=== PATIENT | female | born 1940 | race Caucasian/White ===

== ENCOUNTER 2016-10-15 | Outpatient (CLI) | payer MEDICARE | END 2016-10-15 19:28 | disposition short-term general hospital (02) | DX: R40.20 Unspecified coma (principal) | CPT/HCPCS: A0170; A0425; A0433 ==

== ENCOUNTER 2017-04-10 18:09 | Outpatient (CLI) | payer MEDICARE | END 2017-04-10 18:10 | disposition critical access hospital (66) | LOC: EMS 18:09 | PROVIDERS: ATTEND Surgery | DX: M25.562 Pain in left knee (principal) | CPT/HCPCS: A0425; A0429 ==

== ENCOUNTER 2017-04-10 18:47 | Emergency (ER) | payer MEDICARE ==
[2017-04-10] MEDS ORDERED: IBUPROFEN 800 MG TABLET PO STA (19:01)
--- NOTE | 2017-04-10 19:03 | ED Physician Documentation ---
PD HPI LOWER EXT INJURY - Stated complaint Stated Complaint: KNEE SWELLING - Chief complaint Chief Complaint: Ext Problem - History obtained from History obtained from: Patient, EMS - History of Present Illness PD HPI LOW EXT INJURY LOCATION: Other (76-year-old woman with history of atrial fibrillation on Eliquis, also right total knee replacement complains of left knee pain. She presents by ambulance. History is somewhat limited because of alcohol intoxication. It is unclear what exactly she was doing but she said her knee gave out on her. Now she cannot walk. No specific fall or injury though.) Review of Systems Ten Systems: 10 systems reviewed and negative Constitutional: denies: Fever, Chills GI: denies: Abdominal Pain, Nausea : denies: Dysuria, Frequency, Hesitancy PD PAST MEDICAL HISTORY - Past Medical History Cardiovascular: Hypertension, High cholesterol Other Past Medical History: gout - Present Medications Home Medications: Ambulatory Orders Medication Instructions Recorded Confirmed Allopurinol 100 mg PO DAILY 04/10/17 04/10/17 Apixaban [Eliquis] 5 mg PO BID 04/10/17 04/10/17 Atenolol 50 mg PO DAILY 04/10/17 04/10/17 Atorvastatin [Lipitor] 40 mg PO DAILY 04/10/17 04/10/17 Digoxin 0.125 mg PO DAILY 04/10/17 04/10/17 Famotidine [Pepcid] 20 mg PO DAILY 04/10/17 04/10/17 Furosemide [Lasix] 10 mg PO DAILY 04/10/17 04/10/17 Levothyroxine [Synthroid] 100 mcg PO DAILY 04/10/17 04/10/17 Melatonin 6 mg PO BID 04/10/17 04/10/17 Potassium Chloride [Micro-K] 10 meq PO DAILY 04/10/17 04/10/17 Sertraline [Zoloft] 25 mg PO DAILY 04/10/17 04/10/17 Trazodone HCl 100 mg PO DAILY 04/10/17 04/10/17 levETIRAcetam [Keppra] 500 mg PO BID 04/10/17 04/10/17 - Allergies Allergies/Adverse Reactions: Allergies Allergy/AdvReac Type Severity Reaction Status Date / Time No Known Drug Allergies Allergy Verified 04/10/17 18:51 - Social History Does the pt smoke?: No Smoking Status: Never smoker Does the pt drink ETOH?: Yes PD ED PE NORMAL - Vitals Vital signs reviewed: Yes - General General: Alert and oriented X 3, Other (Slow slurred speech, clearly intoxicated , moderate horizontal nystagmus.) - HEENT HEENT: PERRL, EOMI - Neck Neck: Supple, no meningeal sign, No bony TTP - Cardiac Cardiac: No murmur, Other (IRREG) - Respiratory Respiratory: No respiratory distress, Clear bilaterally - Abdomen Abdomen: Soft, Non tender - Back Back: No CVA TTP, No spinal TTP - Derm Derm: Normal color, Warm and dry - Extremities Extremities: Other (The left knee is swollen, with some effusion but not a massive effusion, she has pain with complete extension or complete flexion but has reasonable range of motion. No significant evidence of infection: No warmth or redness.) - Neuro Neuro: No motor deficit, No sensory deficit, Normal speech - Psych Psych: Normal mood, Normal affect Results - Vitals Vitals: Vital Signs - 24 hr 04/10/17 04/10/17 18:48 20:49 Temperature 36.8 C Heart Rate 58 L 84 Respiratory 18 16 Rate Blood Pressure 118/89 H 108/62 O2 Saturation 100 98 Oxygen O2 Source Room air - Labs Labs: Laboratory Tests 04/10/17 04/10/17 04/10/17 19:15 19:15 20:30 WBC 2.6 L RBC 3.75 L Hgb 12.4 Hct 37.2 MCV 99.2 H MCH 33.1 H MCHC 33.4 RDW 15.7 H Plt Count 158 MPV 7.5 L Neut # 1.7 Lymph # 0.6 L Oliver # 0.3 Eos # 0.1 Baso # 0.0 Absolute Nucleated RBC 0.00 Nucleated RBCs 0.0 PT 17.8 H INR 1.6 H Sodium 134 L Potassium 4.4 Chloride 105 Carbon Dioxide 20 L Anion Gap 9.0 BUN 13 Creatinine 0.9 Estimated GFR (MDRD) 61 L Glucose 104 H Calcium 8.7 Total Bilirubin 1.2 H AST 31 ALT 16 Alkaline Phosphatase 118 Total Protein 7.7 Albumin 3.9 Globulin 3.8 Albumin/Globulin Ratio 1.0 Lipase 27 Ethyl Alcohol 172.1 - Rads (name of study) l KNEE xr Radiology: EMP read contemporaneously (Depressed lateral tibial plateau fracture with severe osteopenia) PD MEDICAL DECISION MAKING - ED course ED course: 76-year-old woman lives alone, there is a report that she is demented but she is also an alcoholic and currently drunk. From unknown trauma she broke her left lateral tibial plateau. Case discussed by phone with Dr. Derrick Kovacs, the on -call orthopedist reviewed her x-rays and feel this is nonoperative, but may need a knee replacement later on. She is placed in a knee immobilizer. I spoke with her son-in-law by phone at with the patient's permission. She will need to stay in the hospital because of intoxication, now a nonweightbearing status and lives alone. Call to the hospitalist, Dr. Sesay for observation at 9:49 PM. Departure - Departure Disposition: ED Place in Observation Clinical Impression: Tibial plateau fracture, left Qualifiers: Encounter type: initial encounter Fracture type: closed Qualified Code(s): S82.142A - Displaced bicondylar fracture of left tibia, initial encounter for closed fracture Alcohol intoxication Qualifiers: Complication of substance-induced condition: uncomplicated Qualified Code(s): F10.120 - Alcohol abuse with intoxication, uncomplicated Dementia Qualifiers: Dementia type: unspecified type Dementia behavioral disturbance: with behavioral disturbance Qualified Code(s): F03.91 - Unspecified dementia with behavioral disturbance Condition: Stable
[2017-04-10] MEDS ORDERED: IBUPROFEN 800 MG TABLET PO ONE (19:08)
[2017-04-10 19:31] LABS: BASOPHILS % (AUTO) 1.3 %; EOSINOPHILS # (AUTO) 0.1 10^3/uL (0.0-0.7); HCT - HEMATOCRIT 37.2 % (37.0-47.0); HGB - HEMOGLOBIN 12.4 g/dL (12.0-16.0); LYMPHOCYTES # (AUTO) 0.6 10^3/uL (1.5-3.5); LYMPHOCYTES % (AUTO) 22.4 %; MEAN CORPUSCULAR HEMOGLOBIN 33.1 pg (27.0-31.0); MEAN CORPUSCULAR HGB CONC 33.4 g/dL (32.0-36.0); MEAN CORPUSCULAR VOLUME 99.2 fL (81.0-99.0); MEAN PLATELET VOLUME 7.5 fL (7.9-10.8); MONOCYTES # (AUTO) 0.3 10^3/uL (0.0-1.0); MONOCYTES % (AUTO) 9.9 %; NEUTROPHILS # (AUTO) 1.7 10^3/uL (1.5-6.6); NEUTROPHILS % (AUTO) 64.4 %; RED BLOOD COUNT 3.75 10^6/uL (4.20-5.40); RED CELL DISTRIBUTION WIDTH 15.7 % (12.0-15.0); UNCORRECTED WHITE BLOOD COUNT 2.6 x10^3/uL; WHITE BLOOD COUNT 2.6 x10^3/uL (4.8-10.8)
[2017-04-10 19:43] LABS: BILIRUBIN,TOTAL 1.2 mg/dL (0.2-1.0); CALCIUM 8.7 mg/dL (8.5-10.3); CREATININE 0.9 mg/dL (0.4-1.0); POTASSIUM 4.4 mmol/L (3.5-5.0); TOTAL PROTEIN 7.7 g/dL (6.7-8.2)
[2017-04-10 20:52] LABS: INR 1.6 (0.8-1.2); PT - PROTHROMBIN TIME 17.8 secs (9.9-12.6)
--- NOTE | 2017-04-10 21:22 | XRAY Preliminary Report ---
Exam: XR Knee 4 View LT IMPRESSION: 1. Osteopenia. 2. Comminuted depressed lateral tibial plateau fracture. Recommend further evaluation with CT. 3. Mild to moderate tricompartmental osteoarthritis, most pronounced in the patellofemoral compartmen t. 4. Moderate knee effusion. [facility] SITE ID: [id number]
--- NOTE | 2017-04-10 21:25 | XRAY Report ---
EXAM: LEFT KNEE RADIOGRAPHY EXAM DATE: 04/10/2017 08:09 PM. CLINICAL HISTORY: Left knee pain. Possible fall. COMPARISON: None. TECHNIQUE: 4 views. FINDINGS: Bones: Osteopenic. Comminuted depressed fracture of the lateral tibial plateau. Joints: Mild to moderate tricompartmental osteophytosis, most pronounced in the patellofemoral compar tment. [id number] medial and patellofemoral compartment joint space loss. A moderate-sized supr apatellar effusion is present. Soft Tissues: Extensive vascular calcifications noted. IMPRESSION: 1. Osteopenia. 2. Comminuted depressed lateral tibial plateau fracture. Recommend further evaluation with CT. 3. Mild to moderate tricompartmental osteoarthritis, most pronounced in the patellofemoral compartmen t. 4. Moderate knee effusion. [facility] Referring Provider Line: [phone] SITE ID: [id number]
[2017-04-10] MEDS ORDERED: MORPHINE 2 MG/ML SYRINGE IVP STA (21:52)
[2017-04-10] MEDS ORDERED: MORPHINE 2 MG/ML SYRINGE ONE (22:05)
[2017-04-10] MEDS ORDERED: SODIUM CHLORIDE FLUSH 0.9% 10 ML SYRINGE IVP ONE (22:06)
--- NOTE | 2017-04-10 23:55 | ED Physician Documentation ---
ED Addendum - Addendum Addendum: 04/10/17 23:53 I was notified by the nursing pbx supervisor that the hospitalist would like the patient to remain in the emergency room and be evaluated by social work associate in the morning for placement rather than observation in the hospital. I reviewed the initial ER report. It states orthopedic consult had decided a non- operative type fracture. She is in a knee immobilizer. She had been intoxicated. At this point then we will change her disposition to continue in the ER with social work associate evaluation for potential placement since she is non- weightbearing because of the injury and lives alone.
[2017-04-11] MEDS ORDERED: MORPHINE 2 MG/ML SYRINGE IVP STA (00:42)
[2017-04-11] MEDS ORDERED: MORPHINE 2 MG/ML SYRINGE ONE (00:48)
[2017-04-11] MEDS ORDERED: SODIUM CHLORIDE FLUSH 0.9% 10 ML SYRINGE IVP ONE (00:49)
--- NOTE | 2017-04-11 11:01 | ED Physician Documentation ---
ED Addendum - Addendum Addendum: This patient was seen by social work. We are attempting to get her into a rehabilitation facility where she could be watched a little bit more closely. She does have a nondisplaced tibial plateau fracture and is probably a chronic alcoholic. The patient was seen by social work and the conversation was with the patient's POA was undertaken. The patient and the POA are agreeable to have her go home. She has a wheelchair. She also has a visiting nurse at home and will work on trying to get the hours extended. The patient was told again that she is to remain nonweightbearing on the affected left knee and to wear her knee immobilizer. We will have her follow-up with Dr. Kovacs 04/11/17 10:57
[2017-04-11] MEDS ORDERED: HALOPERIDOL 5 MG/ML VIAL IVP ONE (17:35)
[2017-04-11] MEDS ORDERED: HALOPERIDOL 5 MG/ML VIAL ONE (17:40)
[2017-04-11] MEDS ORDERED: traMADol 50 MG TABLET PO STA (20:40)
[2017-04-11] MEDS ORDERED: traMADol 50 MG TABLET PO ONE (20:48)
[2017-04-12 14:24] VITALS: BP 145/98
== END 2017-04-12 14:59 | disposition home or self-care (01) ==
LOC: EDUNIT# → ED 18:47
DX: S82.142A Displaced bicondylar fracture of left tibia, initial encounter for closed fracture (principal); W19.XXXA Unspecified fall, initial encounter; F10.120 Alcohol abuse with intoxication, uncomplicated; F03.91 Unspecified dementia, unspecified severity, with behavioral disturbance; I10 Essential (primary) hypertension; E78.00 Pure hypercholesterolemia, unspecified; I48.91 Unspecified atrial fibrillation; Z96.651 Presence of right artificial knee joint; Z79.01 Long term (current) use of anticoagulants
CPT/HCPCS: 36415; 73564; 80053; 80162; 83690; 85025; 85610; 86850; 86900; 86901; 96374; 96375; 96376; 99284; 99285; A9270; G0480; 80320

== ENCOUNTER 2017-04-12 14:55 | Outpatient (CLI) | payer MEDICARE | END 2017-04-12 14:56 | disposition other institution (70) | LOC: EMS 14:55 | PROVIDERS: ATTEND Surgery | DX: F03.90 Unspecified dementia, unspecified severity, without behavioral disturbance, psychotic disturbance, mood disturbance, and anxiety (principal) | CPT/HCPCS: A0425; A0428 ==